=== PATIENT | female | born 1995 | race Two or more races ===

== ENCOUNTER 2024-03-24 04:33 | Emergency (ER) | payer MEDICAID, OTHER ==
[~2024-03-24] VITALS: Ht 175.3 cm; Wt 72.6 kg
[2024-03-24 04:47] VITALS: BP 122/64; PULSE 70; RESP 18; O2SAT 98
== END 2024-03-24 05:58 | disposition left against medical advice (07) ==
LOC: EDBD 04:33 → ER 04:33
DX: N89.8 Other specified noninflammatory disorders of vagina (principal); R10.30 Lower abdominal pain, unspecified; Z53.21 Procedure and treatment not carried out due to patient leaving prior to being seen by health care provider